=== PATIENT | female | born 1955 | race Caucasian/White ===

== ENCOUNTER 2025-04-09 18:42 | Emergency (ER) | payer MEDICARE, OTHER ==
[2025-04-09] MEDS: Acetaminophen/HYDROcodone 325-5 MG Tab PO ONE ×2 (20:05→23:12)
== END 2025-04-09 23:36 | disposition home or self-care (01) ==
LOC: JD.ED 18:42
DX: M23.91 Unspecified internal derangement of right knee (principal); Z88.1 Allergy status to other antibiotic agents; Z79.890 Hormone replacement therapy; Z79.899 Other long term (current) drug therapy
CPT/HCPCS: 73562; 93971; 99284; A9270